=== PATIENT | female | born 1985 | race Two or more races ===

== ENCOUNTER 2023-09-24 17:21 | Emergency (ER) | payer SELFPAY ==
[~2023-09-24] VITALS: Ht 157.5 cm; Wt 55.0 kg
[2023-09-24 17:41] VITALS: TEMP 97.7
[2023-09-24 20:03] VITALS: BP 118/86; PULSE 96; O2SAT 100
[2023-09-24 20:18] LABS: URINE HCG NEGATIVE (NEG)
[2023-09-24 20:19] VITALS: RESP 16
== END 2023-09-24 22:29 | disposition left against medical advice (07) ==
LOC: ER 17:22
DX: K59.00 Constipation, unspecified (principal)
CPT/HCPCS: 74018; 74176; 81025; 99284